=== PATIENT | male | born 1935 | race Caucasian/White ===

== ENCOUNTER 2019-09-16 10:27 | Outpatient (CLI) | payer OTHER ==
[~2019-09-16 10:27] MED LIST: AMOX1TAB12 PO; BENZONATATE100 MG PO; CEFPROZIL500 MG PO; FLUCONAZOLE150 MG PO; IOPHEN DM-100 MG/5 M PO; PROTONIX40 MG PO
== END 2019-09-16 10:29 | disposition home or self-care (01) ==
LOC: RAD 10:27
DX: M19.011 Primary osteoarthritis, right shoulder (principal); M19.012 Primary osteoarthritis, left shoulder; R10.2 Pelvic and perineal pain

== ENCOUNTER → 2020-09-20 | Emergency (ER) | payer OTHER | END | disposition left against medical advice (07) | LOC: ER 20:59 | DX: Z53.20 Procedure and treatment not carried out because of patient's decision for unspecified reasons (principal) ==

== ENCOUNTER 2021-08-06 01:43 | Emergency (ER) | payer OTHER ==
[~2021-08-06] VITALS: Ht 162.6 cm; Wt 68.0 kg
[2021-08-06] MEDS ORDERED: LOTREL 10-20 M1 EACH PO (01:59)
[2021-08-06] MEDS ORDERED: NEURONTIN300 MG PO (01:59)
[2021-08-06] MEDS ORDERED: LASIX20 MG PO (02:00)
[2021-08-06] MEDS ORDERED: ULTRAM50 MG PO (18:35)
[2021-08-09] MEDS ORDERED: DITROPAN XL10 MG PO (08:58)
[2021-08-09] MEDS ORDERED: TAMS0.4C PO (08:59)
[2021-08-09] MEDS ORDERED: ALPRAZOLAM ODT1 MG PO (08:59)
[2021-08-09] MEDS ORDERED: TENORMIN25 MG PO (09:00)
== END 2021-08-06 19:31 | disposition home or self-care (01) ==
LOC: ER 01:43
DX: S42.202A Unspecified fracture of upper end of left humerus, initial encounter for closed fracture (principal); W19.XXXA Unspecified fall, initial encounter; Y93.9 Activity, unspecified; Y92.019 Unspecified place in single-family (private) house as the place of occurrence of the external cause; Z20.822 Contact with and (suspected) exposure to COVID-19

== ENCOUNTER 2021-08-12 08:05 | Inpatient (IN) | payer OTHER ==
[~2021-08-12] VITALS: Ht 157.5 cm; Wt 68.0 kg
[~2021-08-12 08:05] MED LIST changes: +ALPRAZOLAM ODT1 MG PO; +DITROPAN XL10 MG PO; +LASIX20 MG PO; +LOTREL 10-20 M1 EACH PO; +NEURONTIN300 MG PO; +TAMS0.4C PO; +TENORMIN25 MG PO; +ULTRAM50 MG PO
[2021-08-13] MEDS ORDERED: AMLODIPINE-BEN1 EAC5 (07:57)
[2021-08-13] MEDS ORDERED: FENOFIBRATE160 MG (07:57)
[2021-08-13] MEDS ORDERED: PANTOPRAZOLE SO40 MG (07:58)
== END 2021-08-14 23:05 | disposition home or self-care (01) | DRG 493 ==
LOC: CIR.AMB 08:05 → O/R 14:35 → SURH 15:44 → SURG 19:30
PROVIDERS: ADMIT Orthopaedic Surgery; ATTEND Orthopaedic Surgery
PROC: 0LB20ZZ Excision of Left Shoulder Tendon, Open Approach (ICD-10-PCS; 2021-08-12)
PROC: 0RQH0ZZ Repair Left Acromioclavicular Joint, Open Approach (ICD-10-PCS; 2021-08-12)
PROC: 0LS40ZZ Reposition Left Upper Arm Tendon, Open Approach (ICD-10-PCS; 2021-08-12)
PROC: 3E0F7SF Introduction of Other Gas into Respiratory Tract, Via Natural or Artificial Opening (ICD-10-PCS; 2021-08-12)
PROC: 0PSD04Z Reposition Left Humeral Head with Internal Fixation Device, Open Approach (ICD-10-PCS; principal; 2021-08-12 07:00)
DX: S42.232A 3-part fracture of surgical neck of left humerus, initial encounter for closed fracture (principal); S82.035A Nondisplaced transverse fracture of left patella, initial encounter for closed fracture; M75.22 Bicipital tendinitis, left shoulder; M75.102 Unspecified rotator cuff tear or rupture of left shoulder, not specified as traumatic; M19.012 Primary osteoarthritis, left shoulder; E66.3 Overweight; I10 Essential (primary) hypertension; Z68.27 Body mass index [BMI] 27.0-27.9, adult

== ENCOUNTER 2021-10-03 12:44 | Outpatient (CLI) | payer OTHER ==
[~2021-10-03 12:44] MED LIST changes: +AMLODIPINE-BEN1 EAC5; +FENOFIBRATE160 MG; +PANTOPRAZOLE SO40 MG
== END 2021-10-03 12:51 | disposition home or self-care (01) ==
LOC: RAD 12:44
PROVIDERS: ATTEND Orthopaedic Surgery
DX: M25.512 Pain in left shoulder (principal); M25.562 Pain in left knee

== ENCOUNTER 2021-10-08 08:50 | Outpatient (CLI) | payer OTHER | END 2021-10-08 08:55 | disposition home or self-care (01) | LOC: LAB 08:50 | PROVIDERS: ATTEND Orthopaedic Surgery | DX: E55.9 Vitamin D deficiency, unspecified (principal); E56.1 Deficiency of vitamin K; E21.3 Hyperparathyroidism, unspecified; E88.9 Metabolic disorder, unspecified ==

== ENCOUNTER 2021-12-24 14:29 | Outpatient (CLI) | payer OTHER | END 2021-12-24 14:33 | disposition home or self-care (01) | LOC: RAD 14:29 | PROVIDERS: ATTEND Orthopaedic Surgery | DX: S82.035D Nondisplaced transverse fracture of left patella, subsequent encounter for closed fracture with routine healing (principal); S42.242D 4-part fracture of surgical neck of left humerus, subsequent encounter for fracture with routine healing ==

== ENCOUNTER 2022-07-24 08:04 | Outpatient (CLI) | payer OTHER | END 2022-07-24 08:06 | disposition home or self-care (01) | LOC: LAB 08:04 | PROVIDERS: ATTEND Orthopaedic Surgery | DX: E55.9 Vitamin D deficiency, unspecified (principal); M85.9 Disorder of bone density and structure, unspecified; D56.1 Beta thalassemia; E21.3 Hyperparathyroidism, unspecified; E88.89 Other specified metabolic disorders; M81.8 Other osteoporosis without current pathological fracture ==

== ENCOUNTER 2022-09-03 13:15 | Outpatient (CLI) | payer OTHER | END 2022-09-03 13:30 | disposition home or self-care (01) | LOC: NUCLEAR 13:15 | PROVIDERS: ATTEND Orthopaedic Surgery | DX: M81.0 Age-related osteoporosis without current pathological fracture (principal) ==

== ENCOUNTER 2022-11-12 11:55 | Outpatient (CLI) | payer OTHER | END 2022-11-12 11:59 | disposition home or self-care (01) | LOC: RAD 11:55 | PROVIDERS: ATTEND Orthopaedic Surgery | DX: M24.512 Contracture, left shoulder (principal); S42.242D 4-part fracture of surgical neck of left humerus, subsequent encounter for fracture with routine healing ==

== ENCOUNTER 2023-01-05 08:23 | Outpatient (CLI) | payer OTHER ==
[~2023-01-05] VITALS: Ht 157.5 cm; Wt 61.7 kg
== END 2023-01-05 08:32 | disposition home or self-care (01) ==
LOC: LAB 08:23
PROVIDERS: ATTEND Orthopaedic Surgery
DX: D64.9 Anemia, unspecified (principal); E88.9 Metabolic disorder, unspecified; D68.8 Other specified coagulation defects; N39.0 Urinary tract infection, site not specified; B95.62 Methicillin resistant Staphylococcus aureus infection as the cause of diseases classified elsewhere; E11.9 Type 2 diabetes mellitus without complications; Z88.1 Allergy status to other antibiotic agents; Z76.89 Persons encountering health services in other specified circumstances; I10 Essential (primary) hypertension

== ENCOUNTER 2023-01-20 07:26 | Inpatient (IN) | payer OTHER ==
[~2023-01-20] VITALS: Ht 172.7 cm; Wt 174.6 kg
[~2023-01-20 07:26] MED LIST changes: +XANAX0.25 MG PO
[2023-01-21] MEDS ORDERED: XARELTO10 M1 (08:27)
[2023-01-21] MEDS ORDERED: TYMLOS1.56 ML (08:27)
[2023-01-21] MEDS ORDERED: ROSUVASTATIN CAL5 MG (08:28)
[2023-01-21] MEDS ORDERED: LYRICA50 MG (08:28)
== END 2023-01-22 11:20 | disposition home or self-care (01) | DRG 483 ==
LOC: CIR.AMB 07:26 → SURH 17:26
PROVIDERS: ADMIT Orthopaedic Surgery; ATTEND Orthopaedic Surgery
PROC: 0RPK0JZ Removal of Synthetic Substitute from Left Shoulder Joint, Open Approach (ICD-10-PCS; 2023-01-20)
PROC: 0LS40ZZ Reposition Left Upper Arm Tendon, Open Approach (ICD-10-PCS; 2023-01-20)
PROC: 0PBB0ZZ Excision of Left Clavicle, Open Approach (ICD-10-PCS; 2023-01-20)
PROC: 0LM20ZZ Reattachment of Left Shoulder Tendon, Open Approach (ICD-10-PCS; 2023-01-20)
PROC: 0RRK00Z Replacement of Left Shoulder Joint with Reverse Ball and Socket Synthetic Substitute, Open Approach (ICD-10-PCS; principal; 2023-01-20 11:00)
DX: M19.212 Secondary osteoarthritis, left shoulder (principal); S42.252P Displaced fracture of greater tuberosity of left humerus, subsequent encounter for fracture with malunion; M75.122 Complete rotator cuff tear or rupture of left shoulder, not specified as traumatic; M75.82 Other shoulder lesions, left shoulder

== ENCOUNTER 2023-02-23 09:01 | Outpatient (CLI) | payer OTHER ==
[~2023-02-23 09:01] MED LIST changes: +LYRICA50 MG; +ROSUVASTATIN CAL5 MG; +TYMLOS1.56 ML; +XARELTO10 M1
== END 2023-02-23 09:02 | disposition home or self-care (01) ==
LOC: NUCLEAR 09:01
PROVIDERS: ATTEND Orthopaedic Surgery
DX: I87.2 Venous insufficiency (chronic) (peripheral) (principal)